=== PATIENT | female | born 1955 | race Asian ===

== ENCOUNTER 2023-04-08 09:00 | Outpatient (CLI) | payer MEDICARE, BC | END 2023-04-08 23:59 | disposition home or self-care (01) | LOC: CL 09:00 | PROVIDERS: ATTEND Nurse Practitioner Acute Care | DX: T80.211A Bloodstream infection due to central venous catheter, initial encounter (principal); I70.0 Atherosclerosis of aorta; M47.814 Spondylosis without myelopathy or radiculopathy, thoracic region; K63.2 Fistula of intestine; Y83.8 Other surgical procedures as the cause of abnormal reaction of the patient, or of later complication, without mention of misadventure at the time of the procedure; Y92.89 Other specified places as the place of occurrence of the external cause | CPT/HCPCS: 71045-TC ==